=== PATIENT | female | born 1970 | race Caucasian/White ===

== ENCOUNTER 2024-06-06 08:11 | Emergency (ER) | payer OTHER ==
[2024-06-06 08:45] LABS: BASOPHILS PERCENT AUTO 0.3 % (0.0-1.0); EOSINOPHILS PERCENT AUTO 0.3 % (0.0-6.0); HEMATOCRIT 48.4 % (37.0-47.0); HEMOGLOBIN 16.2 gm/dl (12.0-16.0); IMMATURE GRAN ABSOLUTE AUTO 0.06 K/mm3 (0.00-0.05); IMMATURE GRAN PERCENT AUTO 0.4 % (0.0-0.4); LYMPHOCYTES ABSOLUTE AUTO 2.6 K/mm3 (1.0-4.8); LYMPHOCYTES PERCENT AUTO 18.8 % (24.0-44.0); MEAN CORPUSCULAR HEMOGLOBIN 28.7 pg (28.0-32.0); MEAN CORPUSCULAR HGB CONC 33.5 g/dl (32.0-36.0); MEAN CORPUSCULAR VOLUME 85.8 fl (83.0-99.0); MEAN PLATELET VOLUME 9.2 fl (9.4-12.3); MONOCYTES PERCENT AUTO 7.4 % (0.0-8.0); NEUTROPHILS ABSOLUTE AUTO 9.9 K/mm3 (1.8-7.7); NEUTROPHILS PERCENT AUTO 72.8 % (41.0-71.0); PLATELET COUNT,PLT 406 K/mm3 (150-400); RED BLOOD CELL COUNT 5.64 M/mm3 (4.10-5.30); WHITE BLOOD CELL COUNT,WBC 13.59 K/mm3 (3.9-11.3)
[2024-06-06 09:00] LABS: INR 0.99; PROTHROMBIN TIME 10.5 SECONDS (9.7-12.0)
[2024-06-06 09:01] LABS: PTT,PARTIAL THROMBOPLSTIN TIME 28.9 SECONDS (21.7-31.4)
[2024-06-06] MEDS: Sodium Chloride 0.9% 10 ML Syringe FLUSH ONE (09:16)
[2024-06-06] MEDS: Iopamidol 612 MG/ML 100 ML Bottle IVPUSH ONE (09:16)
[2024-06-06] MEDS: Iopamidol 612 MG/ML 30 ML SDV IVPUSH ONE (09:16)
[2024-06-06 09:27] LABS: LACTIC ACID 1.8 mmol/L (0.4-2.0)
[2024-06-06 09:34] LABS: A/G RATIO 0.8 (1-2); ALANINE AMINOTRANSFERASE,ALT 36 U/L (14-59); ALBUMIN 3.4 g/dl (3.4-5.0); ALKALINE PHOSPHATASE 114 U/L (46-116); ANION GAP 13.8 (5-15); ASPARTATE AMNIOTRANSFERASE,AST 24 U/L (15-37); BILIRUBIN TOTAL 0.2 mg/dL (0.2-1.0); BLOOD UREA NITROGEN,BUN 8 mg/dL (7-18); C-REACTIVE PROTEIN 2.66 mg/dL (<0.30); CALCIUM 9.1 mg/dL (8.5-10.1); CARBON DIOXIDE,CO2 27 mEq/L (21-32); CHLORIDE,CL 101 mEq/L (98-107); CREATININE 0.8 mg/dL (0.55-1.02); EST CRCL DRUG DOSING (CG) 77.01 mL/min; ESTIMATED GFR 89 mL/min (>60); GLUCOSE RANDOM 113 mg/dL (70-99); MAGNESIUM 1.6 mg/dL (1.8-2.4); POTASSIUM,K 3.8 mEq/L (3.5-5.1); PROTEIN TOTAL,TP 7.5 g/dl (6.4-8.2); SODIUM,NA 138 mEq/L (136-145)
[2024-06-06 09:39] LABS: TROPONIN I HIGH SENSITIVITY < 4 pg/mL (<=51)
[2024-06-06] MEDS ORDERED: Naloxone 0.4 MG/ML SDV IVPUSH PRN (09:42)
[2024-06-06] MEDS: Sodium Chloride 0.9% 1,000 ML IV SCH (09:57)
[2024-06-06] MEDS: fentaNYL 100 MCG/2 ML SDV IVPUSH ONE (09:58)
[2024-06-06] MEDS: Ondansetron 4 MG/2 ML SDV IVPUSH ONE (10:00)
[2024-06-06] MEDS ORDERED: Lactated Ringers 1,000 ML IV SCH (10:30)
[2024-06-06] MEDS: Benzocaine 20% Topical Spray UD MUCMEM ONE (11:21)
== END 2024-06-06 11:00 ==
LOC: JD.ED 08:11
DX: K56.609 Unspecified intestinal obstruction, unspecified as to partial versus complete obstruction (principal); K42.9 Umbilical hernia without obstruction or gangrene; Z90.710 Acquired absence of both cervix and uterus; Z79.85 Long-term (current) use of injectable non-insulin antidiabetic drugs; Z88.2 Allergy status to sulfonamides; Z88.5 Allergy status to narcotic agent; Z88.6 Allergy status to analgesic agent
CPT/HCPCS: 36415; 43752; 71045; 74177; 80053; 83605; 83735; 83880; 84484; 85025; 85610; 85730; 86140; 93005; 96361; 96374; 96375; 99285; J2405; J3010; J7030; Q9967; 93010

== ENCOUNTER 2024-09-19 22:03 | Emergency (ER) | payer OTHER ==
[2024-09-19] MEDS ORDERED: Sodium Chloride 0.9% 10 ML Syringe FLUSH PRN (22:14)
[2024-09-19] MEDS: HYDROmorphone 0.5 MG/0.5 ML Syringe IVPUSH ONE ×2 (23:09→23:16)
[2024-09-19] MEDS: fentaNYL 100 MCG/2 ML SDV IVPUSH ONE (23:40)
== END 2024-09-20 01:15 | disposition home or self-care (01) ==
LOC: JD.ED 22:03
DX: S06.0XAA Concussion with loss of consciousness status unknown, initial encounter (principal); S00.83XA Contusion of other part of head, initial encounter; I10 Essential (primary) hypertension; J45.909 Unspecified asthma, uncomplicated; E66.9 Obesity, unspecified; E03.9 Hypothyroidism, unspecified; Z68.41 Body mass index [BMI] 40.0-44.9, adult; Z88.2 Allergy status to sulfonamides; Z79.899 Other long term (current) drug therapy; Z86.16 Personal history of COVID-19; Z90.710 Acquired absence of both cervix and uterus; W01.198A Fall on same level from slipping, tripping and stumbling with subsequent striking against other object, initial encounter
CPT/HCPCS: 70450; 72125; 96374; 96375; 99284; J3010